=== PATIENT | female | born 1950 | race Caucasian/White ===

== ENCOUNTER 2018-03-23 15:46 | Outpatient (CLI) | payer MEDICARE, OTHER | END 2018-03-23 15:47 | disposition home or self-care (01) | LOC: DI 15:46 | PROVIDERS: ATTEND Family Medicine | DX: Z12.31 Encounter for screening mammogram for malignant neoplasm of breast (principal) | CPT/HCPCS: 77063; 77067 ==

== ENCOUNTER 2018-07-05 10:12 | Outpatient (CLI) | payer MEDICARE, OTHER ==
--- NOTE | 2018-07-05 13:16 | XRAY Report ---
Reason: CHEST PAIN, UNSPECIFIED Procedure Date: 07/05/2018 Accession Number: [id number] / [id number] Procedure: XR - Chest 2 View X-Ray CPT Code: 05878 FULL RESULT: EXAM: CHEST RADIOGRAPHY EXAM DATE: 07/05/2018 10:33 AM. CLINICAL HISTORY: Shortness of air, wheezing and dry cough upon exertion. COMPARISON: None. TECHNIQUE: 2 views. FINDINGS: Lungs/Pleura: No focal opacities evident. No pleural effusion. No pneumothorax. Normal volumes. Mediastinum: Cardiomediastinal contours are not enlarged, calcification of the aortic arch. Other: Rim calcifications projecting over the breasts suggest prior breast augmentation. IMPRESSION: Prior breast augmentation; no acute cardiopulmonary abnormality detected. RADIA
== END 2018-07-05 10:13 | disposition home or self-care (01) ==
LOC: DI 10:12
PROVIDERS: ATTEND Physician Assistant Medical
DX: Z12.2 Encounter for screening for malignant neoplasm of respiratory organs (principal); Z11.59 Encounter for screening for other viral diseases; R07.9 Chest pain, unspecified
CPT/HCPCS: 71046

== ENCOUNTER 2018-12-02 15:59 | Outpatient (CLI) | payer MEDICARE, OTHER ==
--- NOTE | 2018-12-02 20:00 | Ultrasound Report ---
Reason: VARICOSE VEINS, R LEG PAIN WITH EXERTION Procedure Date: 12/02/2018 Accession Number: [id number] / [id number] Procedure: US - Duplex Ext Veins Bilateral CPT Code: FULL RESULT: EXAM: BILATERAL LOWER EXTREMITY VENOUS ULTRASOUND EXAM DATE: 12/02/2018 04:53 PM. CLINICAL HISTORY: VARICOSE VEINS, R LEG PAIN WITH EXERTION. COMPARISON: None. TECHNIQUE: Real-time sonographic vascular imaging was performed by the blanchard grinder operator through the lower extremities utilizing both color-flow and Doppler spectral analysis. Multiple entry level marketing representative static images were saved for review. FINDINGS: Right: Common Femoral Vein (CFV): Normal. CFV-GSV Junction: Normal. Profunda Femoral Vein (PFV): Normal. Femoral Vein (FV) Prox: Normal. Femoral Vein (FV) Mid: Normal. Femoral Vein (FV) Dist: Normal. Popliteal Vein: Normal. Posterior Tibial Veins: Normal. Peroneal Veins: Normal. Left: Common Femoral Vein (CFV): Normal. CFV-GSV Junction: Normal. Profunda Femoral Vein (PFV): Normal. Femoral Vein (FV) Prox: Normal. Femoral Vein (FV) Mid: Normal. Femoral Vein (FV) Dist: Normal. Popliteal Vein: Normal. Posterior Tibial Veins: Normal. Peroneal Veins: Normal. Other: None. IMPRESSION: No evidence for deep venous thrombosis bilaterally. RADIA
== END 2018-12-02 16:00 | disposition home or self-care (01) ==
LOC: DI 15:59
PROVIDERS: ATTEND Physician Assistant Medical
DX: I83.811 Varicose veins of right lower extremity with pain (principal); I83.93 Asymptomatic varicose veins of bilateral lower extremities
CPT/HCPCS: 93970

== ENCOUNTER 2019-01-15 15:35 | Outpatient (CLI) | payer MEDICARE, OTHER ==
--- NOTE | 2019-01-19 06:32 | XRAY Report ---
Reason: RIGHT KNEE PAIN Procedure Date: 01/15/2019 Accession Number: [id number] / [id number] Procedure: XR - Knee 2 View RT CPT Code: FULL RESULT: EXAM: RIGHT KNEE RADIOGRAPHY EXAM DATE: 01/15/2019 04:18 PM. CLINICAL HISTORY: RIGHT KNEE PAIN. COMPARISON: None. TECHNIQUE: 3 views. FINDINGS: Bones: Normal. No fractures or bone lesions. Joints: Small suprapatellar joint effusion. Marginal osteophyte formation at the patella, condyle, and tibial plateau. Mild tibiofemoral joint space narrowing. Soft Tissues: Normal. No soft tissue swelling. IMPRESSION: Tricompartmental knee joint degeneration. Kellgren Yonatan Grade 2. Kellgren and Yonatan classification of osteoarthritis: Grade 0: no radiographic features of osteoarthritis are present Grade 1: doubtful joint space narrowing (JSN) and possible osteophytic lipping Grade 2: definite osteophytes and possible JSN on anteroposterior weight-bearing radiograph Grade 3: multiple osteophytes, definite JSN, sclerosis, possible bony deformity Grade 4: large osteophytes, marked JSN, severe sclerosis and definite bony deformity RADIA
== END 2019-01-15 15:36 | disposition home or self-care (01) ==
LOC: DI 15:35
PROVIDERS: ATTEND Physician Assistant Medical
DX: M17.11 Unilateral primary osteoarthritis, right knee (principal)

== ENCOUNTER 2019-04-12 09:27 | Day surgery (SDC) | payer MEDICARE, OTHER ==
[~2019-04-12 09:27] MED LIST: LACTATED RINGERS 1,000 ML IV ONE
[2019-04-12] MEDS ORDERED: LACTATED RINGERS 1,000 ML IV ONE (09:40)
[2019-04-12] MEDS ORDERED: MIDAZOLAM 2 MG/2 ML VIAL IVP ONE (10:19)
[2019-04-12] MEDS ORDERED: fentaNYL 250 MCG/5 ML VIAL IVP ONE (10:19)
[2019-04-12 11:25] VITALS: BP 112/64
== END 2019-04-12 09:28 | disposition home or self-care (01) ==
LOC: SDS 09:27
PROVIDERS: ATTEND Internal Medicine Gastroenterology
PROC: 0DBN8ZZ Excision of Sigmoid Colon, Via Natural or Artificial Opening Endoscopic (ICD-10-PCS; 2019-04-12)
PROC: 0DBN8ZZ Excision of Sigmoid Colon, Via Natural or Artificial Opening Endoscopic (ICD-10-PCS; principal; 2019-04-12 10:30)
DX: Z12.11 Encounter for screening for malignant neoplasm of colon (principal); D12.5 Benign neoplasm of sigmoid colon; K57.30 Diverticulosis of large intestine without perforation or abscess without bleeding
CPT/HCPCS: 45380; 45385; J3010; J7120

== ENCOUNTER 2021-01-27 07:22 | Outpatient (CLI) | payer MEDICARE, OTHER ==
[2021-01-27 08:05] LABS: BASOPHILS # (AUTO) 0.1 10^3/uL (0.0-0.1); BASOPHILS % (AUTO) 0.5 %; EOSINOPHILS # (AUTO) 0.1 10^3/uL (0.0-0.7); EOSINOPHILS % (AUTO) 0.5 %; HCT - HEMATOCRIT 40.7 % (37.0-47.0); HGB - HEMOGLOBIN 13.3 g/dL (12.0-16.0); LYMPHOCYTES # (AUTO) 3.7 10^3/uL (1.5-3.5); LYMPHOCYTES % (AUTO) 36.3 %; MEAN CORPUSCULAR HEMOGLOBIN 30.6 pg (27.0-31.0); MEAN CORPUSCULAR HGB CONC 32.7 g/dL (32.0-36.0); MEAN CORPUSCULAR VOLUME 93.6 fL (81.0-99.0); MEAN PLATELET VOLUME 9.7 fL (7.9-10.8); MONOCYTES # (AUTO) 0.6 10^3/uL (0.0-1.0); MONOCYTES % (AUTO) 5.4 %; NEUTROPHILS # (AUTO) 5.9 10^3/uL (1.5-6.6); NEUTROPHILS % (AUTO) 57.1 %; PLT - PLATELET COUNT 298 10^3/uL (130-450); RED BLOOD COUNT 4.35 10^6/uL (4.20-5.40); RED CELL DISTRIBUTION WIDTH 12.5 % (12.0-15.0); WHITE BLOOD COUNT 10.3 x10^3/uL (4.8-10.8)
[2021-01-27 08:17] LABS: ALBUMIN 3.9 g/dL (3.2-5.5); ALBUMIN/GLOBULIN RATIO 1.4 (1.0-2.2); ALKALINE PHOSPHATASE 66 IU/L (42-121); ALT ALANINE AMINOTRANSFERASE 16 IU/L (10-60); AST ASPARTATE AMINOTRANSFERASE 15 IU/L (10-42); BILIRUBIN,TOTAL 0.3 mg/dL (0.2-1.0); BUN - BLOOD UREA NITROGEN 21 mg/dL (6-20); CALCIUM 9.5 mg/dL (8.5-10.3); CARBON DIOXIDE - CO2 26 mmol/L (21-32); CHLORIDE 107 mmol/L (101-111); CHOL/HDL RATIO 3.8 (<4.4); CHOLESTEROL 241 mg/dL; CREATININE 0.6 mg/dL (0.4-1.0); GFR - MDRD 98 (>89); GLUCOSE 99 mg/dL (70-100); HDL CHOLESTEROL 64 mg/dL; LDL CHOLESTEROL,CALCULATED 160 mg/dL; LDL/HDL RATIO 2.5 (<4.4); POTASSIUM 4.3 mmol/L (3.5-5.0); SODIUM 142 mmol/L (135-145); TOTAL PROTEIN 6.7 g/dL (6.7-8.2); TRIGLYCERIDES 84 mg/dL; VLDL CHOLESTEROL 17 mg/dL
== END 2021-01-27 07:23 | disposition home or self-care (01) ==
LOC: LAB 07:22
PROVIDERS: ATTEND Internal Medicine
DX: Z79.899 Other long term (current) drug therapy (principal); Z13.220 Encounter for screening for lipoid disorders
CPT/HCPCS: 36415; 80053; 80061; 83721; 85025

== ENCOUNTER 2021-01-29 08:56 | Outpatient (CLI) | payer MEDICARE, OTHER ==
--- NOTE | 2021-01-29 09:37 | XRAY Report ---
PROCEDURE: Shoulder 3 View RT INDICATIONS: PAIN IN RT SHOULDER TECHNIQUE: 3 views of the shoulder were acquired. COMPARISON: None. FINDINGS: Bones: No fractures or dislocations. No suspicious bony lesions. Visualized ribs appear intact. M oderate medial clavicular degenerative narrowing. Humeral head is high riding. Soft tissues: No suspicious soft tissue calcifications. IMPRESSION: 1. High riding humeral head which can be seen with rotator cuff pathology. 2. Acromioclavicular and glenohumeral narrowing. Reviewed by: Alyson Carroll MD on 01/29/2021 9:36 AM PDT Approved by: Alyson Carroll MD on 01/29/2021 9:36 AM PDT Station ID: [id number]
== END 2021-01-29 08:57 | disposition home or self-care (01) ==
LOC: DI 08:56
PROVIDERS: ATTEND Internal Medicine
DX: M19.011 Primary osteoarthritis, right shoulder (principal)

== ENCOUNTER 2021-02-13 12:17 | Outpatient (CLI) | payer MEDICARE, OTHER ==
--- NOTE | 2021-02-13 16:25 | DEXA Report ---
PROCEDURE: Dexa Spine and/or Hip INDICATIONS: Osteoporosis TECHNIQUE: Dual energy x-ray absorptiometry (DXA) was performed on a [employer] System. Regions measur ed are the AP Spine, femoral neck, and if needed forearm. COMPARISON: None. FINDINGS: Lumbar Spine: Bone Mineral Density 0.9 g/cm/cm,T score -2.3, osteopenia Left Hip: Bone Mineral Density 0.71 g/cm/cm,T score -2.3, osteopenia Left Femoral Neck: Bone Mineral Density 0.701 g/cm/cm, T score -2.4, osteopenia Impression: Osteopenia on the basis of the spine and left femur bone mineral density. Patients with diagnosis of osteoporosis or osteopenia should have regular bone mineral density assess ment. For those eligible for Medicare, routine testing is allowed once every 2 years. Testing frequ ency can be increased for patients who have rapidly progressing disease or for those who are receivin g medical therapy to restore bone mass. Reviewed by: Baljinder Rios MD on 02/13/2021 4:23 PM PDT Approved by: Baljinder Rios MD on 02/13/2021 4:23 PM PDT Station ID: [id number]
== END 2021-02-13 12:18 | disposition home or self-care (01) ==
LOC: DI 12:17
PROVIDERS: ATTEND Internal Medicine
DX: M85.89 Other specified disorders of bone density and structure, multiple sites (principal)

== ENCOUNTER 2021-02-13 12:18 | Outpatient (CLI) | payer MEDICARE, OTHER ==
--- NOTE | 2021-02-16 10:36 | Mammography Report ---
BILATERAL DIGITAL SCREENING MAMMOGRAM 3D/2D WITH AUGMENTATION: 02/13/2021 CLINICAL: Routine screening. Routine screening. Comparison is made to exam dated: 03/23/2018 mammogram - [facility]. There are sc attered fibroglandular elements in both breasts. Patient is status post bilateral implant removal with residual diffuse silicone granulomas bilaterall y, which do not appear significantly changed when compared to the prior exam. No significant masses, calcifications, or other findings are seen in either breast. IMPRESSION: BENIGN There is no mammographic evidence of malignancy. A 1 year screening mammogram is recommended. This exam was interpreted at Station ID: [id number]. NOTE: For mammograms, a report in lay terms will be sent to the patient. Approximately 15% of breast malignancies will not be visualized mammographically. In the management of a palpable breast mass, a negative mammogram must not discourage biopsy of a clinically suspicious lesion. Electronically Signed By: Dann goncalves/ramiro:02/13/2021 14:43:27 ACR BI-RADS Category 2: Benign Finding(s) 3342F PARENCHYMAL PATTERN: (A) - The breast(s) demonstrate(s) scattered fibroglandular densities. BI-RADS CATEGORY: (2) - 2 RECOMMENDATION: (ANNUAL) - Recommend routine annual screening mammography. [id number] 1 year screening LATERALITY: (B)
== END 2021-02-13 12:19 | disposition home or self-care (01) ==
LOC: DI 12:18
DX: Z12.31 Encounter for screening mammogram for malignant neoplasm of breast (principal)

== ENCOUNTER 2021-08-28 08:03 | Outpatient (CLI) | payer MEDICARE, OTHER | END 2021-08-28 08:04 | disposition home or self-care (01) | LOC: LAB 08:03 | PROVIDERS: ATTEND Student in an Organized Health Care Education/Training Program | DX: M81.0 Age-related osteoporosis without current pathological fracture (principal) | CPT/HCPCS: 36415; 82310 ==

== ENCOUNTER 2022-03-20 08:15 | Emergency (ER) | payer MEDICARE, OTHER ==
[2022-03-20] MEDS ORDERED: ASPIRIN CHEW 81 MG TABLET PO STA (08:30)
--- NOTE | 2022-03-20 08:34 | ED Physician Documentation ---
PD HPI CHEST PAIN - Stated complaint Stated Complaint: CHEST PX - Chief complaint Chief Complaint: Cardiac - History obtained from History obtained from: Patient - Additional information Additional information: 72-year-old woman who presents by private vehicle with her . She has no history of coronary disease, but she does have a history of cigarette smoking. Borderline HDL, no hypertension. Since yesterday she has had episodic chest pain. They have been mild, lasting maybe half a minute at a time. Central and right side chest, otherwise nonradiating. No back or jaw pain. Sometimes start with light activity, sometimes at rest. There is no associated shortness of breath, sweats, nausea. No recent travel, pedal edema or calf pain. Review of Systems Ten Systems: 10 systems reviewed and negative Constitutional: reports: Fatigue (From poor sleep last night) Cardiac: reports: Chest pain / pressure. 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 - Present Medications Home Medications: Ambulatory Orders Medication Instructions Recorded Confirmed Alendronate [Fosamax] 70 mg PO ONCE 04/11/19 04/12/19 estradioL [Estradiol] 1 mg PO DAILY 04/11/19 04/11/19 - Allergies Allergies/Adverse Reactions: Allergies Allergy/AdvReac Type Severity Reaction Status Date / Time terbinafine [From Lamisil] AdvReac Rash Verified 04/12/19 09:43 PD ED PE NORMAL - Vitals Vital signs reviewed: Yes - General General: Alert and oriented X 3, No acute distress - HEENT HEENT: PERRL, EOMI - Neck Neck: Supple, no meningeal sign, No bony TTP, No bruit - Cardiac Cardiac: RRR, No murmur - Respiratory Respiratory: No respiratory distress, Clear bilaterally - Abdomen Abdomen: Normal bowel sounds, Soft, Non tender - Back Back: No CVA TTP, No spinal TTP - Derm Derm: Normal color, Warm and dry - Extremities Extremities: No edema, No calf tenderness / cord - Neuro Neuro: Alert and oriented X 3, Normal speech Results - Vitals Vitals: Vital Signs - 24 hr 03/20/22 03/20/22 03/20/22 08:25 08:27 08:57 Temperature 37.0 C Heart Rate 70 70 68 Respiratory 19 19 19 Rate Blood Pressure 148/84 H 148/84 H 130/80 O2 Saturation 99 99 99 Oxygen O2 Source Room air - EKG (time done) 0821 Rate: Rate (enter#) (66) Rhythm: NSR Irene: Normal Intervals: Normal NH QRS: Low voltage (borderline) Ischemia: Normal ST segments. No: ST elevation c/w ischemia, ST elevation c/w repol Compare to prior EKG: Old EKG unavailable (no priors in emr) 0913 Rate: Rate (enter#) (58) Rhythm: NSR Irene: Normal Ischemia: Normal ST segments. No: ST elevation c/w ischemia, ST depression Compare to prior EKG: Unchanged from prior EKG - Labs Labs: Laboratory Tests 03/20/22 03/20/22 03/20/22 08:25 08:25 08:25 WBC 8.8 RBC 4.55 Hgb 13.9 Hct 42.6 MCV 93.6 MCH 30.5 MCHC 32.6 RDW 12.6 Plt Count 287 MPV 10.0 Neut # (Auto) 5.1 Lymph # (Auto) 3.1 [place] # (Auto) 0.4 Eos # (Auto) 0.2 Baso # (Auto) 0.1 Absolute Nucleated RBC 0.00 Nucleated RBC % 0.0 Sodium 138 Potassium 4.2 Chloride 107 Carbon Dioxide 25 Anion Gap 6.0 BUN 20 Creatinine 0.5 Estimated GFR (MDRD) 121 Glucose 105 H Calcium 9.0 Total Bilirubin 0.6 AST 18 ALT 17 Alkaline Phosphatase 57 Troponin I High Sens 5.0 Total Protein 6.6 L Albumin 4.0 Globulin 2.6 Albumin/Globulin Ratio 1.5 Lipase 35 - Rads (name of study) Single view chest x-ray shows hyperexpanded lungs without acute abnormality Radiology: EMP read contemporaneously PD MEDICAL DECISION MAKING - ED course ED course: 72-year-old woman who presents with episodic atypical chest pain of short duration and nonexertional. She does have risk factors though including age and tobacco use. At approximately 915 she had a recurrent episode of pain, it lasted 7 seconds and a repeat EKG was done, unfortunately due to the very short nature of the pain the EKG was done after the cessation of pain, but did not change significantly from the first EKG. Heart score 3 points Departure - Departure Disposition: 01 Home, Self Care Clinical Impression: Chest pain Qualifiers: Chest pain type: unspecified Qualified Code(s): R07.9 - Chest pain, unspecified Condition: Good Record reviewed to determine appropriate education?: Yes Instructions: ED Chest Pain Atypical Unkn Cause Follow-Up: Jase Lopes MD [Provider Admit Priv/Credential] - Comments: Take a baby aspirin a day, if you develop recurrent chest pain, especially if it lasts more than a couple of minutes please return immediately for reevaluation or if your symptoms otherwise change. Follow-up with your primary care physician, consideration for semiurgent stress testing. The physician on-call for the [facility] is listed on this form and you can follow-up with him this coming week, calling Tuesday for an appointment.
[2022-03-20 08:42] LABS: BASOPHILS # (AUTO) 0.1 10^3/uL (0.0-0.1); BASOPHILS % (AUTO) 0.6 %; EOSINOPHILS # (AUTO) 0.2 10^3/uL (0.0-0.7); EOSINOPHILS % (AUTO) 1.7 %; HCT - HEMATOCRIT 42.6 % (37.0-47.0); HGB - HEMOGLOBIN 13.9 g/dL (12.0-16.0); LYMPHOCYTES # (AUTO) 3.1 10^3/uL (1.5-3.5); LYMPHOCYTES % (AUTO) 34.8 %; MEAN CORPUSCULAR HEMOGLOBIN 30.5 pg (27.0-31.0); MEAN CORPUSCULAR HGB CONC 32.6 g/dL (32.0-36.0); MEAN CORPUSCULAR VOLUME 93.6 fL (81.0-99.0); MONOCYTES # (AUTO) 0.4 10^3/uL (0.0-1.0); MONOCYTES % (AUTO) 4.9 %; NEUTROPHILS # (AUTO) 5.1 10^3/uL (1.5-6.6); NEUTROPHILS % (AUTO) 57.9 %; PLT - PLATELET COUNT 287 10^3/uL (130-450); RED BLOOD COUNT 4.55 10^6/uL (4.20-5.40); RED CELL DISTRIBUTION WIDTH 12.6 % (12.0-15.0); WHITE BLOOD COUNT 8.8 x10^3/uL (4.8-10.8)
--- NOTE | 2022-03-20 08:50 | XRAY Report ---
PROCEDURE: Chest 1 View X-Ray INDICATIONS: Chest Pain TECHNIQUE: One view of the chest was acquired. COMPARISON: 07/05/2018 FINDINGS: Surgical changes and devices: Rim calcified mammaplasty implants are seen. Lungs and pleura: No pleural effusions or pneumothorax. Lungs are clear, yet hyperexpanded. Mediastinum: The aorta is prominent and tortuous. The cardiac contours are within normal limits. Bones and chest wall: No suspicious bony lesions. Mild levoconvex scoliotic curvature is seen. Age- appropriate degenerative changes are seen. Overlying soft tissues appear unremarkable. IMPRESSION: Hyperexpanded lungs are seen, without an acute cardiopulmonary abnormality seen. Postoperative and degenerative changes are seen. Reviewed by: Dao Manzanares MD on 03/20/2022 7:49 AM [facility] Approved by: Dao Manzanares MD on 03/20/2022 7:49 AM [facility] Station ID: [id number]
[2022-03-20 09:00] LABS: ALBUMIN/GLOBULIN RATIO 1.5 (1.0-2.2); BILIRUBIN,TOTAL 0.6 mg/dL (0.2-1.0); CREATININE 0.5 mg/dL (0.4-1.0); POTASSIUM 4.2 mmol/L (3.5-5.0); TOTAL PROTEIN 6.6 g/dL (6.7-8.2)
[2022-03-20 10:06] VITALS: BP 138/60
== END 2022-03-20 10:06 | disposition home or self-care (01) ==
LOC: ED 08:15
DX: R07.9 Chest pain, unspecified (principal); F17.200 Nicotine dependence, unspecified, uncomplicated
CPT/HCPCS: 36415; 71045; 80053; 83690; 84484; 85025; 93005; 99284; A9270

== ENCOUNTER 2022-03-31 07:31 | Outpatient (CLI) | payer MEDICARE, OTHER ==
[2022-03-31 07:43] LABS: BASOPHILS # (AUTO) 0.1 10^3/uL (0.0-0.1); BASOPHILS % (AUTO) 0.6 %; EOSINOPHILS # (AUTO) 0.2 10^3/uL (0.0-0.7); EOSINOPHILS % (AUTO) 1.7 %; HCT - HEMATOCRIT 42.3 % (37.0-47.0); HGB - HEMOGLOBIN 13.8 g/dL (12.0-16.0); LYMPHOCYTES # (AUTO) 2.9 10^3/uL (1.5-3.5); LYMPHOCYTES % (AUTO) 26.6 %; MEAN CORPUSCULAR HEMOGLOBIN 30.5 pg (27.0-31.0); MEAN CORPUSCULAR HGB CONC 32.6 g/dL (32.0-36.0); MEAN CORPUSCULAR VOLUME 93.6 fL (81.0-99.0); MEAN PLATELET VOLUME 9.5 fL (7.9-10.8); MONOCYTES # (AUTO) 0.5 10^3/uL (0.0-1.0); MONOCYTES % (AUTO) 4.3 %; NEUTROPHILS # (AUTO) 7.2 10^3/uL (1.5-6.6); NEUTROPHILS % (AUTO) 66.5 %; PLT - PLATELET COUNT 251 10^3/uL (130-450); RED BLOOD COUNT 4.52 10^6/uL (4.20-5.40); RED CELL DISTRIBUTION WIDTH 12.6 % (12.0-15.0); WHITE BLOOD COUNT 10.8 x10^3/uL (4.8-10.8)
[2022-03-31 08:01] LABS: ALBUMIN 4.1 g/dL (3.2-5.5); ALBUMIN/GLOBULIN RATIO 1.7 (1.0-2.2); ALKALINE PHOSPHATASE 57 IU/L (42-121); ALT ALANINE AMINOTRANSFERASE 17 IU/L (10-60); AST ASPARTATE AMINOTRANSFERASE 16 IU/L (10-42); BILIRUBIN,TOTAL 0.6 mg/dL (0.2-1.0); BUN - BLOOD UREA NITROGEN 16 mg/dL (6-20); CALCIUM 9.1 mg/dL (8.5-10.3); CARBON DIOXIDE - CO2 28 mmol/L (21-32); CHLORIDE 105 mmol/L (101-111); CHOL/HDL RATIO 3.6 (<4.4); CHOLESTEROL 222 mg/dL; CREATININE 0.6 mg/dL (0.4-1.0); GFR - MDRD 98 (>89); GLUCOSE 107 mg/dL (70-100); HDL CHOLESTEROL 61 mg/dL; LDL CHOLESTEROL,CALCULATED 141 mg/dL; LDL/HDL RATIO 2.3 (<4.4); POTASSIUM 4.3 mmol/L (3.5-5.0); SODIUM 141 mmol/L (135-145); TOTAL PROTEIN 6.5 g/dL (6.7-8.2); TRIGLYCERIDES 101 mg/dL; VLDL CHOLESTEROL 20 mg/dL
[2022-03-31 08:13] LABS: THYROID STIMULATING HORMONE 1.89 uIU/mL (0.34-5.60)
== END 2022-03-31 07:32 | disposition home or self-care (01) ==
LOC: LAB 07:31
PROVIDERS: ATTEND Nurse Practitioner
DX: F41.9 Anxiety disorder, unspecified (principal); Z79.899 Other long term (current) drug therapy; Z13.220 Encounter for screening for lipoid disorders
CPT/HCPCS: 36415; 80053; 80061; 83721; 84443; 85025

== ENCOUNTER 2022-08-20 07:35 | Outpatient (CLI) | payer MEDICARE, OTHER | END 2022-08-20 07:36 | disposition home or self-care (01) | LOC: LAB 07:35 | PROVIDERS: ATTEND Student in an Organized Health Care Education/Training Program | DX: M81.0 Age-related osteoporosis without current pathological fracture (principal) | CPT/HCPCS: 36415; 82306; 82310 ==

== ENCOUNTER 2022-09-01 08:26 | Outpatient (CLI) | payer MEDICARE, OTHER ==
--- NOTE | 2022-09-01 09:47 | DEXA Report ---
PROCEDURE: Dexa Spine and/or Hip INDICATIONS: OSTEOPOROSIS TECHNIQUE: Dual energy x-ray absorptiometry (DXA) was performed on a [employer]ck System. Regions measur ed are the AP Spine, femoral neck, and if needed forearm. COMPARISON: 02/13/2021 FINDINGS: Lumbar Spine: Bone Mineral Density 0.94 g/cm/cm,T score -2, previously -2.3 Left Femoral Neck: Bone Mineral Density 0.7 g/cm/cm, T score -2.4, previously -2.4 Left Hip: Bone Mineral Density 0.68 g/cm/cm,T score -2.6, previously -2.3 (T score greater or equal to -1.0: NORMAL) (T score from -1.1 to -2.4: OSTEOPENIA) (T score less than or equal to -2.5 to: OSTEOPOROSIS) Impression: Persistent osteopenia of the lumbar spine and left femoral neck. Slightly decreased bone mineral dens ity in the left hip overall, now in the osteoporosis range. Fracture risk is elevated. Patients with diagnosis of osteoporosis or osteopenia should have regular bone mineral density assess ment. For those eligible for Medicare, routine testing is allowed once every 2 years. Testing frequ ency can be increased for patients who have rapidly progressing disease or for those who are receivin g medical therapy to restore bone mass. Reviewed by: Nigel Ramírez MD on 09/01/2022 9:46 AM PDT Approved by: Nigel Ramírez MD on 09/01/2022 9:46 AM PDT Station ID: [id number]
== END 2022-09-01 08:27 | disposition home or self-care (01) ==
LOC: DI 08:26
PROVIDERS: ATTEND Nurse Practitioner
DX: Z78.0 Asymptomatic menopausal state (principal); M85.89 Other specified disorders of bone density and structure, multiple sites

== ENCOUNTER 2022-12-03 07:30 | Outpatient (CLI) | payer MEDICARE, OTHER ==
--- NOTE | 2022-12-06 11:58 | Mammography Report ---
BILATERAL DIGITAL SCREENING MAMMOGRAM 3D/2D: 12/03/2022 CLINICAL: Routine screening. Comparison is made to exams dated: 02/13/2021 mammogram, 03/23/2018 mammogram - [facility], and 04/13/2013 mammogram - [facility]. There are scattered areas of fibroglandular density in both breasts (category b / 25%-50% glandular t issue). There is an asymmetry in the right breast middle depth medial region seen on the craniocaudal view on ly. No other significant masses, calcifications, or other findings are seen in either breast. IMPRESSION: INCOMPLETE: NEEDS ADDITIONAL IMAGING EVALUATION The asymmetry in the right breast is indeterminate. Additional views with possible ultrasound are re commended. Based on the Tyrer Cuzick model (a risk assessment model) the patients lifetime risk is 2.0% and her 10 year risk is 1.8%. According to the ACR, ACS, and NCCN guidelines, an annual breast MRI exam bipin g with mammogram is recommended if the patients lifetime risk is 20% or greater. This exam was interpreted at Station ID: [id number]. NOTE: For mammograms, a report in lay terms will be sent to the patient. Approximately 15% of breast malignancies will not be visualized mammographically. In the management of a palpable breast mass, a negative mammogram must not discourage biopsy of a clinically suspicious lesion. Electronically Signed By: Nigel Ramírez M.D. lc/:12/03/2022 12:27:53 ACR BI-RADS Category 0: Incomplete 3340F PARENCHYMAL PATTERN: (A) - The breast(s) demonstrate(s) scattered fibroglandular densities. BI-RADS CATEGORY: (0) - 0 Mammo and [place] [id number] Immediate follow-up LATERALITY: (B)
== END 2022-12-03 07:31 | disposition home or self-care (01) ==
LOC: DI 07:30
DX: Z12.31 Encounter for screening mammogram for malignant neoplasm of breast (principal); R92.8 Other abnormal and inconclusive findings on diagnostic imaging of breast

== ENCOUNTER 2022-12-28 10:02 | Outpatient (CLI) | payer MEDICARE, OTHER ==
--- NOTE | 2022-12-29 10:24 | Ultrasound Report ---
LIMITED ULTRASOUND OF RIGHT BREAST: 12/28/2022 CLINICAL: Patient returns today to evaluate an asymmetry in the left breast. Comparison is made to exams dated: 12/28/2022 mammogram, 12/03/2022 mammogram, 02/13/2021 mammogram, mammogram - [facility], 04/13/2013 mammogram, and 06/16/2012 ultrasound - [facility]. Color flow and real-time ultrasound of the right breast 2-3 o'clock region were performed. Leonard scal e images of the real-time examination were reviewed. No significant abnormalities were seen sonographically in the right breast. IMPRESSION: PROBABLY BENIGN There is no abnormality seen in the right breast to correspond with the mammography finding which may represent post operative changes/scarring or summation artifact of breast tissue. This is probably benign. A follow-up right mammogram with possible right ultrasound in 6 months is recommended to demonstrate stability. Findings and recommendations were conveyed to the patient during today's evaluation. This exam was interpreted at Station ID: [id number]. Electronically Signed By: Kermit Jimenes M.D. aty/:12/28/2022 12:47:11 Ultrasound BI-RADS: 3 Probably benign BI-RADS CATEGORY: (3) - 3 Mammo and US [id number] 6 month follow-up LATERALITY: (R)
--- NOTE | 2022-12-29 10:24 | Mammography Report ---
UNILATERAL RIGHT DIGITAL DIAGNOSTIC MAMMOGRAM 3D/2D WITH AUGMENTATION: 12/28/2022 CLINICAL: Patient returns today to evaluate an asymmetry in the right breast. Comparison is made to exams dated: 12/03/2022 mammogram, 02/13/2021 mammogram, and 03/23/2018 mammogra m - [facility]. There are scattered areas of fibroglandular density in the right breast (category b / 25%-50% glandul ar tissue). The previously described asymmetry in the right breast middle depth medial region seen on the cranioc audal view only is not definitively confirmed in additional views. This is less prominent. No other significant masses or calcifications are seen in the breast. IMPRESSION: INCOMPLETE: NEEDS ADDITIONAL IMAGING EVALUATION The asymmetry in the right breast is indeterminate. An ultrasound is recommended for further evaluat ion and is scheduled to immediately follow this examination. Based on the Tyrer Cuzick model (a risk assessment model) the patients lifetime risk is 2.0% and her 10 year risk is 1.8%. According to the ACR, ACS, and NCCN guidelines, an annual breast MRI exam bipin g with mammogram is recommended if the patients lifetime risk is 20% or greater. This exam was interpreted at Station ID: [id number]. NOTE: For mammograms, a report in lay terms will be sent to the patient. Approximately 15% of breast malignancies will not be visualized mammographically. In the management of a palpable breast mass, a negative mammogram must not discourage biopsy of a clinically suspicious lesion. Electronically Signed By: Kermit Jimenes M.D. aty/:12/28/2022 12:44:15 ACR BI-RADS Category 0: Incomplete 3340F PARENCHYMAL PATTERN: (A) - The breast(s) demonstrate(s) scattered fibroglandular densities. BI-RADS CATEGORY: (0) - 0 Ultrasound [id number] Immediate follow-up LATERALITY: (R)
== END 2022-12-28 10:03 | disposition home or self-care (01) ==
LOC: DI 10:02
PROVIDERS: ATTEND Nurse Practitioner
DX: R92.8 Other abnormal and inconclusive findings on diagnostic imaging of breast (principal)

== ENCOUNTER 2023-03-10 11:51 | Emergency (ER) | payer MEDICARE, OTHER ==
[2023-03-10 12:19] VITALS: BP 138/80; O2SAT 100
[2023-03-10] MEDS ORDERED: ROPIVACAINE 0.5% PF 20 ML AMPULE SUBQ STA (12:37)
[2023-03-10] MEDS ORDERED: DEXAMETHASONE 10 MG/ML VIAL PO STA (12:37)
[2023-03-10] MEDS ORDERED: CHERRY SYRUP 10 ML UDC PO ONE (12:37)
--- NOTE | 2023-03-10 12:43 | ED Physician Documentation ---
PD HPI LOWER EXT INJURY - Stated complaint Stated Complaint: LT THUMB SWOLLEN/STUNG - Chief complaint Chief Complaint: Ext Problem - History obtained from History obtained from: Patient - Additional information Additional information: 73-year-old woman was stung by a bee or wasp to the left thumb this morning with significant pain. No throat swelling or shortness of breath. 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 - Present Medications Home Medications: Ambulatory Orders Medication Instructions Recorded Confirmed Denosumab [Prolia] 60 mg PO MAINTENANCE.IV 03/10/23 03/10/23 - Allergies Allergies/Adverse Reactions: Allergies Allergy/AdvReac Type Severity Reaction Status Date / Time terbinafine [From Lamisil] AdvReac Rash Verified 03/10/23 12:11 - Social History Does the pt smoke?: No Smoking Status: Never smoker Does the pt drink ETOH?: Yes Does the pt have substance abuse?: No - Immunizations Immunizations are current?: Yes - POLST Patient has POLST: No PD ED PE NORMAL - Vitals Vital signs reviewed: Yes - General General: Alert and oriented X 3, No acute distress - HEENT HEENT: Pharynx benign - Respiratory Respiratory: No respiratory distress, Clear bilaterally - Abdomen Abdomen: Non tender - Extremities Extremities: Other (Redness and swelling of the left thumb) - Psych Psych: Normal mood, Normal affect Results - Vitals Vitals: Vital Signs - 24 hr 03/10/23 12:05 Temperature 36.2 C L Heart Rate 65 Respiratory 17 Rate Blood Pressure 138/80 H O2 Saturation 100 Oxygen O2 Source Room air Procedures - General procedure General procedure: Median and radial nerve blocks of the left hand were done with 0.2% ropivacaine with excellent pain relief. She also received 10 mg of oral Decadron. PD Medical Decision Making - ED course ED course: We discussed options, she would like some steroids and really wants something for pain but does not want pain medication. She wanted a shot of lidocaine in her thumb. I discussed with her that perhaps more efficacious would be and radial/median nerve block with ropivacaine given the site. Departure - Departure Disposition: 01 Home, Self Care Clinical Impression: Bee sting Qualifiers: Encounter type: initial encounter Injury intent: accidental or unintentional Qualified Code(s): T63.441A - Toxic effect of venom of bees, accidental (unintentional), initial encounter Condition: Good Record reviewed to determine appropriate education?: Yes Instructions: ED Bite Insect Comments: You received radial and median nerve blocks with ropivacaine which is a longer acting anesthetic. You also received an oral dose of long-acting steroids here which should be helpful. Tonight you can take Benadryl and ibuprofen if pain recurs. Return for new or worsening symptoms. Forms: PCP List
[2023-03-10] MEDS ORDERED: ROPIVACAINE 0.2% PF 10 ML VIAL SUBQ STA (12:45)
== END 2023-03-10 13:12 | disposition home or self-care (01) ==
LOC: ED 11:51
DX: T63.441A Toxic effect of venom of bees, accidental (unintentional), initial encounter (principal); M79.645 Pain in left finger(s)
CPT/HCPCS: 64450; 99282; 99283; A9270

== ENCOUNTER 2023-04-20 07:35 | Outpatient (CLI) | payer MEDICARE, OTHER ==
[2023-04-20 07:48] LABS: BASOPHILS % (AUTO) 0.6 %; EOSINOPHILS # (AUTO) 0.1 10^3/uL (0.0-0.7); EOSINOPHILS % (AUTO) 1.9 %; HCT - HEMATOCRIT 42.1 % (37.0-47.0); HGB - HEMOGLOBIN 13.6 g/dL (12.0-16.0); LYMPHOCYTES # (AUTO) 3.2 10^3/uL (1.5-3.5); LYMPHOCYTES % (AUTO) 43.8 %; MEAN CORPUSCULAR HEMOGLOBIN 30.3 pg (27.0-31.0); MEAN CORPUSCULAR HGB CONC 32.3 g/dL (32.0-36.0); MEAN CORPUSCULAR VOLUME 93.8 fL (81.0-99.0); MEAN PLATELET VOLUME 9.6 fL (7.9-10.8); MONOCYTES # (AUTO) 0.4 10^3/uL (0.0-1.0); MONOCYTES % (AUTO) 5.7 %; NEUTROPHILS # (AUTO) 3.5 10^3/uL (1.5-6.6); NEUTROPHILS % (AUTO) 47.9 %; PLT - PLATELET COUNT 246 10^3/uL (130-450); RED BLOOD COUNT 4.49 10^6/uL (4.20-5.40); RED CELL DISTRIBUTION WIDTH 12.7 % (12.0-15.0); WHITE BLOOD COUNT 7.2 x10^3/uL (4.8-10.8)
[2023-04-20 08:05] LABS: ALBUMIN 4.4 g/dL (3.2-5.5); ALBUMIN/GLOBULIN RATIO 1.8 (1.0-2.2); ALKALINE PHOSPHATASE 50 IU/L (42-121); ALT ALANINE AMINOTRANSFERASE 14 IU/L (10-60); AST ASPARTATE AMINOTRANSFERASE 16 IU/L (10-42); BILIRUBIN,TOTAL 0.5 mg/dL (0.2-1.0); BUN - BLOOD UREA NITROGEN 17 mg/dL (6-20); CALCIUM 9.6 mg/dL (8.5-10.3); CARBON DIOXIDE - CO2 29 mmol/L (21-32); CHLORIDE 104 mmol/L (101-111); CHOL/HDL RATIO 3.3 (<4.4); CHOLESTEROL 220 mg/dL; CREATININE 0.6 mg/dL (0.6-1.3); GFR - MDRD 97 (>89); GLUCOSE 111 mg/dL (74-104); HDL CHOLESTEROL 66 mg/dL; LDL CHOLESTEROL,CALCULATED 129 mg/dL; SODIUM 138 mmol/L (135-145); TOTAL PROTEIN 6.8 g/dL (6.4-8.9); TRIGLYCERIDES 126 mg/dL (48-352); VLDL CHOLESTEROL 25 mg/dL
[2023-04-20 08:17] LABS: THYROID STIMULATING HORMONE 1.56 uIU/mL (0.34-5.60)
[2023-04-20 11:15] LABS: ESTIMATED AVERAGE GLUCOSE 120 mg/dL (70-100); HEMOGLOBIN A1c% 5.8 % (4.27-6.07)
== END 2023-04-20 07:36 | disposition home or self-care (01) ==
LOC: LAB 07:35
PROVIDERS: ATTEND Nurse Practitioner
DX: E78.5 Hyperlipidemia, unspecified (principal); Z79.899 Other long term (current) drug therapy; R73.03 Prediabetes; F41.9 Anxiety disorder, unspecified
CPT/HCPCS: 36415; 80053; 80061; 83036; 83721; 84443; 85025

== ENCOUNTER 2023-08-10 09:53 | Outpatient (CLI) | payer MEDICARE, OTHER ==
--- NOTE | 2023-08-11 09:08 | Mammography Report ---
UNILATERAL RIGHT DIGITAL DIAGNOSTIC MAMMOGRAM 3D/2D WITH SPOT COMPRESSION WITH AUGMENTATION: 08/10/2023 CLINICAL: Patient returns for a 6 month follow up of the right breast. Comparison is made to exams dated: 12/28/2022 mammogram, 12/03/2022 mammogram, 02/13/2021 mammogram, an d 03/23/2018 mammogram - [facility]. There are scattered areas of fibroglandular density in the right breast (category b / 25%-50% glandul ar tissue). There is a 5 mm irregular low density asymmetry with a spiculated margin in the right breast at 4 o'c lock posterior depth. This is persistent and slightly more prominent compared to prior screening exa m, but not well seen on spot views, likely due to position. There are dense dystrophic capsular calcifications in the right breast following implant removal. Darlyn icone granulomas are also seen. No other significant masses or calcifications are seen in the breast. IMPRESSION: INCOMPLETE: NEEDS ADDITIONAL IMAGING EVALUATION The 5 mm irregular low density asymmetry in the right breast persists and remains indeterminate. An ultrasound is recommended. The patient was unable to stay for scheduled ultrasound appointment, and this will be rescheduled for another date as soon as possible. Based on the Tyrer Cuzick model (a risk assessment model) the patient's lifetime risk is 1.8% and her 10 year risk is 1.8%. According to the ACR, ACS, and NCCN guidelines, an annual breast MRI exam bipin g with mammogram is recommended if the patient's lifetime risk is 20% or greater. This exam was interpreted at Station ID: [id number]. NOTE: For mammograms, a report in lay terms will be sent to the patient. Approximately 15% of breast malignancies will not be visualized mammographically. In the management of a palpable breast mass, a negative mammogram must not discourage biopsy of a clinically suspicious lesion. Electronically Signed By: Iwona orr/:08/10/2023 11:46:29 ACR BI-RADS Category 0: Incomplete 3340F PARENCHYMAL PATTERN: (A) - The breast(s) demonstrate(s) scattered fibroglandular densities. BI-RADS CATEGORY: (0) - 0 Ultrasound [id number] Immediate follow-up LATERALITY: (B)
== END 2023-08-10 09:54 | disposition home or self-care (01) ==
LOC: DI 09:53
PROVIDERS: ATTEND Nurse Practitioner
DX: R92.8 Other abnormal and inconclusive findings on diagnostic imaging of breast (principal); R92.321 Mammographic fibroglandular density, right breast

== ENCOUNTER 2023-08-16 07:37 | Outpatient (CLI) | payer MEDICARE, OTHER | END 2023-08-16 07:38 | disposition home or self-care (01) | LOC: LAB 07:37 | PROVIDERS: ATTEND Student in an Organized Health Care Education/Training Program | DX: M81.0 Age-related osteoporosis without current pathological fracture (principal) | CPT/HCPCS: 36415; 82306; 82310 ==

== ENCOUNTER 2023-08-24 08:43 | Outpatient (CLI) | payer MEDICARE, OTHER ==
--- NOTE | 2023-08-25 09:28 | Ultrasound Report ---
LIMITED ULTRASOUND OF RIGHT BREAST: 08/24/2023 CLINICAL: Patient returns for sonographic evaluation of right breast mass. Comparison is made to exams dated: 08/10/2023 mammogram, 12/28/2022 ultrasound, 12/28/2022 mammogram, mammogram, 02/13/2021 mammogram, and 03/23/2018 mammogram - [facility]. Color flow and real-time ultrasound of the right breast 4 o'clock region were performed. Leonard scale images of the real-time examination were reviewed. There is a benign 0.6 cm x 0.6 cm x 0.4 cm oval cyst in the right breast at 4 o'clock middle depth 4 cm from the nipple. This oval cyst is anechoic with a well-defined boundary and posterior acoustic e nhancement. Color flow imaging demonstrates that there is no vascularity present. IMPRESSION: INCOMPLETE: NEEDS ADDITIONAL IMAGING EVALUATION The 0.6 cm simple cyst in the right breast 4:00 is benign. No mass identified in the area of suspected spiculated asymmetry. Prior mammogram demonstrates extracapsular silicone and the prior finding is not well seen on the MLO view. Recommend breast MRI with IV contrast and silicone subtraction sequences for further evaluatio n. Exam findings were conveyed to the patient. This exam was interpreted at Station ID: [id number]. Electronically Signed By: Lucian Lee M.D. slc/:08/24/2023 09:44:52 Ultrasound BI-RADS: 0 Indeterminate BI-RADS CATEGORY: (0) - 0 MRI [id number] Immediate follow-up LATERALITY: (B)
== END 2023-08-24 08:44 | disposition home or self-care (01) ==
LOC: DI 08:43
PROVIDERS: ATTEND Nurse Practitioner
DX: N60.01 Solitary cyst of right breast (principal)

== ENCOUNTER 2023-09-04 06:21 | Emergency (ER) | payer MEDICARE, OTHER ==
[2023-09-04 06:51] VITALS: O2SAT 97
[2023-09-04 07:43] LABS: B. PARAPERTUSSIS- RESP PCR PAN NOT DETECTED; B. PERTUSSIS- RESP PCR PANEL NOT DETECTED; C. PNEUMONIAE- RESP PCR PANEL NOT DETECTED; CORONAVIRUS 229E-RESP PCR NOT DETECTED; CORONAVIRUS HKU1-RESP PCR NOT DETECTED; CORONAVIRUS NL63-RESP PCR NOT DETECTED; CORONAVIRUS OC43-RESP PCR NOT DETECTED; HUMAN METAPNEUMOVIRUS NOT DETECTED; INFLUENZA A- RESP PCR PANEL NOT DETECTED; INFLUENZA B - RESP PCR PANEL NOT DETECTED; M. PNEUMONIAE- RESP PCR PANEL NOT DETECTED; PARAINFLUENZA VIRUS 1 NOT DETECTED; PARAINFLUENZA VIRUS 2 NOT DETECTED; PARAINFLUENZA VIRUS 3 DETECTED; PARAINFLUENZA VIRUS 4 NOT DETECTED; RHINOVIRUS/ENTEROVIRUS NOT DETECTED; RSV- RESP PCR PANEL NOT DETECTED; SARS-CoV-2 -RESP PCR PANEL NOT DETECTED
--- NOTE | 2023-09-04 07:56 | XRAY Report ---
PROCEDURE: Chest 2V INDICATIONS: cough TECHNIQUE: 2 views of the chest were acquired. COMPARISON: None. FINDINGS: Surgical changes and devices: Partially calcified breast implants can be seen. Lungs and pleura: No pleural effusions or pneumothorax. Lungs are clear, yet hyperexpanded. Mediastinum: The aorta is prominent and tortuous. The cardiac contours are within normal limits. Bones and chest wall: No suspicious bony lesions. Age-appropriate degenerative changes are seen. S- shaped scoliotic curvature is seen. A few chronic appearing midthoracic spine anterior wedge deformit ies are seen, with associated accentuated thoracic kyphosis. Overlying soft tissues appear unremarka ble. IMPRESSION: Hyperexpanded lungs are seen, without an acute cardiopulmonary abnormality seen. Chronic appearing thoracic spine anterior wedge deformities, with associated accentuated thoracic kyp hosis. Additional findings: Calcified breast implants Reviewed by: Dao Manzanares MD on 09/04/2023 6:55 AM AKDT Approved by: Dao Manzanares MD on 09/04/2023 6:55 AM AK Station ID: [id number]
--- NOTE | 2023-09-04 08:14 | ED Physician Documentation ---
PD HPI URI - Stated complaint Stated Complaint: CONGESTION - Chief complaint Chief Complaint: Resp - Additional information Additional information: So she is can be working for rest than lyla generally healthy 73-year-old lady with congestion, sore throat and cough over the past 3 days. No measured fevers or chills. She is not in any respiratory distress. She has been fairly miserable though unable to sleep at night due to congestion and cough. She is a lifelong non-smoker no ill contacts. She is fully vaccinated against COVID. Has not had any systemic symptoms such as fevers or chills or myalgias. 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 - Present Medications Home Medications: Ambulatory Orders Medication Instructions Recorded Confirmed Denosumab [Prolia] 60 mg PO MAINTENANCE.IV 03/10/23 03/10/23 Albuterol Sulf [Ventolin Hfa 1 - 2 puffs INH Q4HR PRN #1 each 09/04/23 Inhaler] - Allergies Allergies/Adverse Reactions: Allergies Allergy/AdvReac Type Severity Reaction Status Date / Time terbinafine [From Lamisil] AdvReac Rash Verified 09/04/23 06:47 - Social History Does the pt smoke?: No Smoking Status: Never smoker Does the pt drink ETOH?: Yes Does the pt have substance abuse?: No - Immunizations Immunizations are current?: Yes - POLST Patient has POLST: No PD ED PE NORMAL - Vitals Vital signs reviewed: Yes - General General: Alert and oriented X 3 - HEENT HEENT: Ears normal, Moist mucous membranes, Pharynx benign, Other (Mild tenderness to palpation on maxillary sinuses) - Neck Neck: Supple, no meningeal sign - Cardiac Cardiac: RRR - Respiratory Respiratory: No respiratory distress, Clear bilaterally Results - Vitals Vitals: Vital Signs - 24 hr 09/04/23 09/04/23 06:46 08:25 Temperature 36.5 C 36.6 C Heart Rate 96 91 Respiratory 18 17 Rate Blood Pressure 148/80 H 137/93 H O2 Saturation 97 97 Oxygen O2 Source Room air - Labs Labs: Laboratory Tests 09/04/23 06:50 Nasal Adenovirus (PCR) NOT DETECTED Nasal B. parapertussis DNA (PCR) NOT DETECTED Nasal Coronavir 229E PCR NOT DETECTED Nasal Coronavir HKU1 PCR NOT DETECTED Nasal Coronavir NL63 PCR NOT DETECTED Nasal Coronavir OC43 PCR NOT DETECTED Nasal Enterovir/Rhinovir PCR NOT DETECTED Nasal Influenza B PCR NOT DETECTED Nasal Influenza A PCR NOT DETECTED Nasal Parainfluen 1 PCR NOT DETECTED Nasal Parainfluen 2 PCR NOT DETECTED Nasal Parainfluen 3 PCR DETECTED A Nasal Parainfluen 4 PCR NOT DETECTED Nasal RSV (PCR) NOT DETECTED Nasal B.pertussis DNA PCR NOT DETECTED Nasal C.pneumoniae (PCR) NOT DETECTED Ovidio Human Metapneumo PCR NOT DETECTED Nasal M.pneumoniae (PCR) NOT DETECTED Nasal SARS-CoV-2 (PCR) NOT DETECTED - Rads (name of study) Chest x-ray Relevant Findings:: EMP independent interpretation of test (No pneumonia) PD Medical Decision Making - ED course ED course: Generally healthy 73-year-old with URI symptoms likely viral over the past 3 days. No indication at this is a pneumonia on chest x-ray. Overall symptoms appear bothersome but not indicative of a bacterial process especially given time course. Given the short duration would not prescribe antibiotics for her URI at this point will recommend symptomatic management with an albuterol inhaler for her cough given that her lungs look slightly hyperinflated on her chest x-ray. Will also have her take pidk-ogb-rdzlbnv guaifenesin she can try Benadryl and/or magnesium at night to try to help her get some sleep. Overall benign I discussed that should her symptoms persist AntiBac might be reasonable in the future but for now this would likely be a viral upper respiratory infection which would not need antibiotics and she is certainly amenable and understands this logic. Departure - Departure Disposition: 01 Home, Self Care Clinical Impression: Upper respiratory tract infection, Parainfluenza Instructions: ED Upper Resp Infec No Abx Tx Ch Prescriptions: Albuterol Sulf [Ventolin Hfa Inhaler] 1 - 2 puffs INH Q4HR PRN #1 each PRN Reason: Shortness Of Air/Wheezing Comments: As I mentioned, your infection is most likely due to a viral infection. As such we will not treat with antibiotics at this time. However should he still be feeling ill or develop fever or worsening symptoms later this week we might revisit that. I recommend taking fyoh-kwh-xsemkwa medications such as Benadryl, you can take 25 to 50 mg at night to help you sleep. I would try zaip-bjs-tfdqclx Mucinex for the congestion symptoms. I will prescribe you an albuterol inhaler which will help with the cough. Additionally, as you are mentioning sleep you could try an ixwc-odi-gqmvxnx magnesium threonate supplement which is also OTC. Forms: PCP List Discharge Date/Time: 09/04/23 08:30
[2023-09-04 08:35] VITALS: BP 137/93
== END 2023-09-04 08:30 | disposition home or self-care (01) ==
LOC: ED 06:21
DX: J06.9 Acute upper respiratory infection, unspecified (principal); B34.8 Other viral infections of unspecified site
CPT/HCPCS: 87633; 99284

== ENCOUNTER 2023-10-06 11:57 | Outpatient (CLI) | payer MEDICARE, OTHER ==
[2023-10-06 12:57] LABS: CREATININE 0.6 mg/dL (0.6-1.3)
== END 2023-10-06 11:58 | disposition home or self-care (01) ==
LOC: LAB 11:57
PROVIDERS: ATTEND Nurse Practitioner
DX: R92.8 Other abnormal and inconclusive findings on diagnostic imaging of breast (principal)
CPT/HCPCS: 36415; 82565

== ENCOUNTER 2023-10-18 19:13 | Emergency (ER) | payer MEDICARE, OTHER ==
--- NOTE | 2023-10-18 20:15 | ED Physician Documentation ---
PD HPI UPPER EXT INJURY - Stated complaint Stated Complaint: DOG BITE RT HAND - Chief complaint Chief Complaint: Laceration - History obtained from History obtained from: Patient - Additonal information Additional information: HPI from patient. Patient c/o right hand puncture wound sustained approximately 3 hours prior to this HPI at home. She was teaching her dog to "shake hands", but in the process the dog's claw pierced patient's right hand at the thenar eminence. Patient does not know when she last had tetanus immunization. She is right hand dominant. Denies weakness, numbness. 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 - Present Medications Home Medications: Ambulatory Orders Medication Instructions Recorded Confirmed Denosumab [Prolia] 60 mg PO MAINTENANCE.IV 03/10/23 03/10/23 Albuterol Sulf [Ventolin Hfa 1 - 2 puffs INH Q4HR PRN #1 each 09/04/23 Inhaler] Amox/Clav 875/125 [Augmentin 1 tablet PO Q12H 5 Days #10 tablet 10/18/23 875/125 Tab] - Allergies Allergies/Adverse Reactions: Allergies Allergy/AdvReac Type Severity Reaction Status Date / Time terbinafine [From Lamisil] AdvReac Rash Verified 10/18/23 19:40 - Social History Does the pt smoke?: No Smoking Status: Never smoker Does the pt drink ETOH?: Yes Does the pt have substance abuse?: No - Immunizations Immunizations are current?: Yes - POLST Patient has POLST: No PD ED PE NORMAL - Vitals Vital signs reviewed: Yes - General General: Alert and oriented X 3, No acute distress, Well developed/nourished - Neuro Neuro: No motor deficit, No sensory deficit PD ED PE EXPANDED - Extremities Extremities: Other ("v"-shaped superficial flap laceration at base of right thumb. FROM , LTS intact) Results - Vitals Vitals: Oxygen O2 Source Room air Procedures - Laceration (location) Finger right Length in cm: 0.5 Wound type: Flap, Superficial, Clean Neurovascular status: Sensory intact, Motor intact, Vascular intact Wound preparation: Chlorhexadine, Wound explored Skin layer closure: Dermabond, Steri strips Other: Patient tolerated well, No complications, Tetanus booster given PD Medical Decision Making - ED course Complexity details: considered differential, d/w patient Departure - Departure Disposition: 01 Home, Self Care Clinical Impression: Puncture wound Condition: Good Instructions: ED Laceration Hand Prescriptions: Amox/Clav 875/125 [Augmentin 875/125 Tab] 1 tablet PO Q12H 5 Days #10 tablet Comments: You were given a tetanus shot in the emergency department tonight. You received the first dose of an antibiotic (Augmentin) to help prevent infection for the puncture wound to your hand. I am providing you a prescription for a 5-day course of this antibiotic. Discharge Date/Time: 10/18/23 20:48
[2023-10-18] MEDS: TETANUS/DIPHTHERIA/PERTUSSIS 0.5 ML SYRINGE IM ONE (20:33)
[2023-10-18] MEDS: AMOX/CLAV 875 MG/125 MG TABLET PO STA (20:44)
[2023-10-18 20:46] VITALS: BP 138/72; O2SAT 97
== END 2023-10-18 20:48 | disposition home or self-care (01) ==
LOC: ED 19:13
DX: S61.431A Puncture wound without foreign body of right hand, initial encounter (principal); W26.8XXA Contact with other sharp object(s), not elsewhere classified, initial encounter; Z86.010 Personal history of colon polyps; Z23 Encounter for immunization
CPT/HCPCS: 12001; 90471; 90715; 99283; A9270

== ENCOUNTER 2023-10-27 12:46 | Outpatient (CLI) | payer MEDICARE, OTHER ==
[~2023-10-27 12:46] MED LIST changes: +GADOTERATE MEGLUMINE 7.5 MMOL/15 ML VIAL ONE; -LACTATED RINGERS 1,000 ML IV ONE
[2023-10-27] MEDS: GADOTERATE MEGLUMINE 7.5 MMOL/15 ML VIAL IVP ONE (14:03)
--- NOTE | 2023-10-28 10:28 | MRI Report ---
BREAST MRI OF BOTH BREASTS: 10/27/2023 CLINICAL: Additional evaluation requested from prior study. PROCEDURE: Breast BL W/WO INDICATIONS: ABN BREAST US CONTRAST: CLARISCAN 11.4 ML TECHNIQUE: The patient was placed prone in a dedicated breast imaging coil. Precontrast axial STIR and 3D spoil ed GE without fat saturation sequences were obtained. Both before and after bolus injection of contr ast, sequential 1-minute axial 3D spoiled GE with fat saturation sequences for 3 time points, with stallings btraction images and maximum intensity projections (MIP's) generated. Delayed sagittal spoiled GE im ages with fat saturation were also obtained. Computer-aided detection, including computer algorithm analysis of MRI image data for lesion detectio n and characterization, pharmacokinetic analysis, with further physician review for interpretation, w as performed. COMPARISON: 08/10/2023, 08/24/2023, 12/28/2022, 12/03/2022, 02/13/2021, 03/23/2018 FINDINGS: Image quality: Mildly degraded by motion. There is minimal background parenchymal enhancement. There are scattered fibroglandular density. Right breast: Silicone breast implant in place. Much of the intracapsular silicone has degraded. The re is extracapsular rupture in the posterior, inferior, and superior regions, particularly on the lat eral side. In the upper-outer quadrant near the axillary tail, there is a 6 mm oval circumscribed mass. This may correspond to a finding on mammogram seen in 2022 an 2017. This may represent an intramammary lymph node. There appears to be nipple inversion and skin thickening involving the periareolar complex. Otherwise, no suspicious mass, nonmass enhancement, or focus. Left breast: Silicone breast implant in place. Much of the silicone is degraded. There are small foc i of silicone material that appears on the outside of the capsule particularly at the medial and supe rior aspects. No suspicious mass, nonmass enhancement, or focus. Miscellaneous: By size criteria, there are no enlarged axillary or internal mammary lymph nodes with in the field of view. The partially visualized upper abdomen is unremarkable. There may be cardiomega ly. IMPRESSION: INCOMPLETE: NEEDS ADDITIONAL IMAGING EVALUATION Right breast: Extracapsular silicone implant rupture. Clinical evaluation is recommended. Previously described mammographic asymmetry with no sonographic or MR correlate probably represents s carring and is probably benign. Continued mammographic follow-up is recommended to establish two-year stability (first seen 12/28/2022) every 6 months, last evaluated on 08/10/2023. Oval circumscribed mass in the upper-outer quadrant near the axillary tail, likely corresponding to a n intramammary lymph node seen in 2022 and 2017. Ultrasound is recommended for confirmation. Right breast: BIRADS 0 Left breast: Silicone breast implant in place. Much of the silicone is degraded. There are small foci of extracapsular rupture particularly on the medial and superior aspects. Clinical evaluation is rec ommended. Left breast: BIRADS 2 COMMENT: The imaging literature indicates that a negative contrast breast MRI examination has a high sensitivity and a moderate specificity for detecting and excluding invasive carcinomas to a detection threshold of 3-5 mm; nonetheless, appropriate clinical and mammographic follow-up are recommended. MRI is not sensitive for detecting DCIS (ductal carcinoma in situ) and may not detect large invasive neoplasms that show only minimal enhancement such as mucinous carcinoma. If there are suspicious gaetano cifications or clinically worrisome palpable masses, then biopsy should still be considered. Invasiv e neoplasms can be hidden by co-existent and benign enhancement caused by mastitis, hormone therapy e ffects, radiation therapy, , and recent biopsy or surgery. False positive examinations can occur in a number of circumstances, including breasts that have recently been subject to invasive pro cedures and those that contain atypical ductal hyperplasia, hormonally stimulated glandular tissue, f at necrosis, or radial scars. This exam was interpreted at Station ID: [id number]. Electronically Signed By: Nigel Ramírez M.D. lc/:10/28/2023 09:02:09 ACR BI-RADS Category 0: Incomplete 3340F BI-RADS CATEGORY: (0) - 0 Ultrasound [id number] Immediate follow-up LATERALITY: (B)
== END 2023-10-27 12:47 | disposition home or self-care (01) ==
LOC: DI 12:46
PROVIDERS: ATTEND Nurse Practitioner
DX: R92.8 Other abnormal and inconclusive findings on diagnostic imaging of breast (principal); T85.898A Other specified complication of other internal prosthetic devices, implants and grafts, initial encounter

== ENCOUNTER 2023-11-16 10:50 | Outpatient (CLI) | payer MEDICARE, OTHER ==
--- NOTE | 2023-11-17 10:40 | Ultrasound Report ---
LIMITED ULTRASOUND OF RIGHT BREAST: 11/16/2023 CLINICAL: Abnormal MRI. Comparison is made to exams dated: 10/27/2023 breast MRI, 08/24/2023 ultrasound, 08/10/2023 mammogram, ultrasound, 12/28/2022 mammogram, and 12/03/2022 mammogram - [facility]. Color flow and real-time ultrasound of the right breast were performed. Leonard scale images of the bradley l-time examination were reviewed. There are multiple benign normal lymph nodes in the right axilla, and in the upper outer right breast posterior depth. One of these normal nodes measures up to 1.1 cm in greatest diameter, and is at th e high 10:00 position, corresponding to the MRI finding. Deep to this is a simple cyst 1.3 cm in size , also consistent with MRI finding. Several other axillary nodes have normal morphology. There are in cidental findings of shadowing hyperechoic material consistent with extravasated silicone, or silicon e within lymph nodes. IMPRESSION: BENIGN There is no sonographic evidence of malignancy. Findings include lymph nodes with normal morphology, simple cyst, and silicone, all benign. Return to annual mammogram screening schedule is recommended. Findings and recommendations were conveyed to the patient at time of exam. This exam was interpreted at Station ID: [id number]. Electronically Signed By: Iwona orr/:11/16/2023 15:49:49 letter sent: No_Letter Ultrasound BI-RADS: 2 Benign BI-RADS CATEGORY: (2) - 2 RECOMMENDATION: (ADDMAM) - Recommend additional mammographic views. [id number] return to screening LATERALITY: (B)
== END 2023-11-16 10:51 | disposition home or self-care (01) ==
LOC: DI 10:50
PROVIDERS: ATTEND Nurse Practitioner
DX: N60.01 Solitary cyst of right breast (principal)

== ENCOUNTER 2024-01-06 08:13 | Outpatient (CLI) | payer MEDICARE, OTHER ==
[2024-01-06 08:24] LABS: BASOPHILS # (AUTO) 0.1 10^3/uL (0.0-0.1); BASOPHILS % (AUTO) 0.7 %; EOSINOPHILS # (AUTO) 0.1 10^3/uL (0.0-0.7); EOSINOPHILS % (AUTO) 1.5 %; HCT - HEMATOCRIT 40.5 % (37.0-47.0); HGB - HEMOGLOBIN 12.8 g/dL (12.0-16.0); LYMPHOCYTES # (AUTO) 3.3 10^3/uL (1.5-3.5); LYMPHOCYTES % (AUTO) 43.9 %; MEAN CORPUSCULAR HEMOGLOBIN 29.8 pg (27.0-31.0); MEAN CORPUSCULAR HGB CONC 31.6 g/dL (32.0-36.0); MEAN CORPUSCULAR VOLUME 94.2 fL (81.0-99.0); MEAN PLATELET VOLUME 9.8 fL (7.9-10.8); MONOCYTES # (AUTO) 0.5 10^3/uL (0.0-1.0); MONOCYTES % (AUTO) 6.1 %; NEUTROPHILS # (AUTO) 3.6 10^3/uL (1.5-6.6); NEUTROPHILS % (AUTO) 47.7 %; PLT - PLATELET COUNT 240 10^3/uL (130-450); WHITE BLOOD COUNT 7.6 x10^3/uL (4.8-10.8)
[2024-01-06 08:41] LABS: ALBUMIN/GLOBULIN RATIO 1.9 (1.0-2.2); ALKALINE PHOSPHATASE 60 IU/L (42-121); ALT ALANINE AMINOTRANSFERASE 18 IU/L (10-60); AST ASPARTATE AMINOTRANSFERASE 18 IU/L (10-42); BILIRUBIN,TOTAL 0.4 mg/dL (0.2-1.0); BUN - BLOOD UREA NITROGEN 17 mg/dL (6-20); CALCIUM 9.3 mg/dL (8.5-10.3); CARBON DIOXIDE - CO2 30 mmol/L (21-32); CHLORIDE 107 mmol/L (101-111); CREATININE 0.6 mg/dL (0.6-1.3); CRP - C-REACTIVE PROTEIN < 0.5 mg/dL (<0.5); GFR - MDRD 97 (>89); GLUCOSE 67 mg/dL (74-104); POTASSIUM 4.7 mmol/L (3.5-4.5); SODIUM 142 mmol/L (135-145); TOTAL PROTEIN 6.1 g/dL (6.4-8.9)
[2024-01-06 08:55] LABS: THYROID STIMULATING HORMONE 1.61 uIU/mL (0.34-5.60)
== END 2024-01-06 08:14 | disposition home or self-care (01) ==
LOC: LAB 08:13
PROVIDERS: ATTEND Nurse Practitioner
DX: R53.83 Other fatigue (principal)
CPT/HCPCS: 36415; 80053; 82607; 84443; 85025; 85651; 86140